=== PATIENT | female | born 1980 | race Caucasian/White ===

== ENCOUNTER → 2016-05-03 | Outpatient (CLI) | payer OTHER ==
[~2016-05-03] MED LIST: ADVAIR 250/501 EA INH; AMOXICILLIN500 M2 PO; ASPIRIN81 M1 PO; ATIVAN0.5 MG PO; B COMPLEX1 EACH PO; B-COMPLEX-501 CAP PO; BENADRYL25 MG PO; BIRTH CONTROL1 EAC1 PO; CLARITIN10 MG PO; COMBIVENT1 ARO IH; COREG25 MG PO; DELTASONE20 MG PO; EES400 MG PO; Hydralazine Hyd25 MG PO; IMDUR SA30 MG PO; K-TAB10 MEQ PO; KENALOG0.1% TP; LASIX80 MG PO; LISINOPRIL10 MG PO; MEDROL DOSEPAK4 MG PO; MOTRIN800 MG PO; MULTIPLE VITAMI1 CAP PO; PREDNISONE20 MG PO; ROBITUSSIN DM 105 ML PO; SINGULAIR10 MG PO; VENTOLIN H0.09 MG/AC INH; VENTOLIN0.09 MG/AC IH; VIBRAMYCIN100 MG PO; VITAMIN B610 MG PO; XARE20MG PO; ZITHROMAX Z PA250 MG PO; ZITHROMAX250 MG PO; ZYRTEC10 MG PO
[2016-05-03 14:55] LABS: BASO # 0.1 10*3/uL (0.0-0.1); BASO % 0.8 % (0.0-1.0); EOS # 0.2 10*3/uL (0.0-0.4); EOS % 1.8 % (1.0-4.0); HEMATOCRIT 33.1 % (37.0-47.0); HEMOGLOBIN 9.5 g/dl (12.0-16.0); IG # 0.1 10*3/uL (0.0-0.1); LYMPH # 3.7 10*3/uL (1.3-4.4); LYMPH % 33.5 % (27.0-41.0); MEAN CELL VOLUME 79.8 fl (81.0-99.0); MEAN CORPUSCULAR HGB 22.9 pg (27.0-31.0); MEAN CORPUSCULAR HGB CONC 28.7 g/dl (33.0-37.0); MEAN PLATELET VOLUME 8.1 fl (9.6-12.3); MONO # 0.9 10*3/uL (0.1-1.0); MONO % 7.8 % (3.0-9.0); NEUT # 6.1 10*3/uL (2.3-7.9); NEUT % 55.6 % (47.0-73.0); NUCLEATED RED BLOOD CELL 0.1 10*3/uL (0.0-0.0); NUCLEATED RED BLOOD CELL 0.5 % (0.0-0.0); PLATELET COUNT AUTOMATED 383 10*3/uL (130-400); RED BLOOD COUNT 4.15 10*6/uL (4.10-5.10); RED CELL DISTRI WIDTH 17.5 % (0-14.5)
[2016-05-03 15:14] LABS: ALBUMIN 3.1 gm/dl (3.1-4.5); ALKALINE PHOSPHATASE 108 U/L (45-117); BILIRUBIN, TOTAL 0.4 mg/dl (0.2-1.0); BUN 11 mg/dl (7-24); CARBON DIOXIDE 33 mmol/L (21-32); CHLORIDE 99 mmol/L (98-107); EST GLOM FILT AFRICAN AMERICAN > 60 ml/min; GLUCOSE 103 mg/dL (65-99); POTASSIUM 3.1 mmol/L (3.5-5.1); SGOT/AST 22 IU/L (3-35); SGPT/ALT 26 U/L (12-78); SODIUM 139 mmol/L (136-145); TOTAL PROTEIN 7.5 gm/dL (6.4-8.2)
== END | disposition home or self-care (01) ==
LOC: LAB 14:08
PROVIDERS: Internal Medicine Cardiovascular Disease
DX: I48.92 Unspecified atrial flutter (principal)

== ENCOUNTER 2016-09-29 12:18 | Emergency (ER) | payer OTHER ==
[~2016-09-29] VITALS: Ht 162.5 cm; Wt 127.0 kg
[2016-09-29] MEDS ORDERED: BACTRIM DS 8001 TA1 PO (13:01)
[2016-09-29 20:03] VITALS: BP 121/75
== END 2016-09-29 20:17 | disposition home or self-care (01) ==
LOC: ED 12:18
DX: L72.9 Follicular cyst of the skin and subcutaneous tissue, unspecified (principal); J45.909 Unspecified asthma, uncomplicated; Z90.49 Acquired absence of other specified parts of digestive tract; Z88.1 Allergy status to other antibiotic agents; Z88.8 Allergy status to other drugs, medicaments and biological substances; Z79.82 Long term (current) use of aspirin; Z79.899 Other long term (current) drug therapy

== ENCOUNTER 2016-12-15 17:02 | Emergency (ER) | payer OTHER ==
[~2016-12-15] VITALS: Wt 127.0 kg
[~2016-12-15 17:02] MED LIST changes: +BACTRIM DS 8001 TA1 PO
[2016-12-15 17:19] VITALS: BP 108/68
[2016-12-15] MEDS ORDERED: ZITHROMAX250 MG PO (17:25)
[2016-12-15] MEDS ORDERED: FLONASE ALLERG9.9 ML NAS (17:25)
[2016-12-15] MEDS ORDERED: AUGMENTIN 875875 MG PO (17:36)
[2016-12-15] MEDS ORDERED: PROVENTIL HFA6.7 GM INH (17:36)
== END 2016-12-15 17:53 | disposition home or self-care (01) ==
LOC: ED 17:02
DX: J40 Bronchitis, not specified as acute or chronic (principal); J01.00 Acute maxillary sinusitis, unspecified; J45.909 Unspecified asthma, uncomplicated; Z88.1 Allergy status to other antibiotic agents; Z88.8 Allergy status to other drugs, medicaments and biological substances; Z88.6 Allergy status to analgesic agent; Z79.899 Other long term (current) drug therapy; Z79.82 Long term (current) use of aspirin

== ENCOUNTER 2017-05-07 11:53 | Emergency (ER) | payer OTHER ==
[~2017-05-07] VITALS: Wt 125.2 kg
[~2017-05-07 11:53] MED LIST changes: +AUGMENTIN 875875 MG PO; +FLONASE ALLERG9.9 ML NAS; +PROVENTIL HFA6.7 GM INH
[2017-05-07 12:59] LABS: HEMATOCRIT 22.6 % (37.0-47.0); MEAN CELL VOLUME 70.8 fl (81.0-99.0); MEAN CORPUSCULAR HGB 18.8 pg (27.0-31.0); MEAN CORPUSCULAR HGB CONC 26.5 g/dl (33.0-37.0); MEAN PLATELET VOLUME 8.2 fl (9.6-12.3); NUCLEATED RED BLOOD CELL 0.3 10*3/uL (0.0-0.0); NUCLEATED RED BLOOD CELL 3.2 % (0.0-0.0); PLATELET COUNT AUTOMATED 385 10*3/uL (130-400); RED BLOOD COUNT 3.19 10*6/uL (4.10-5.10); RED CELL DISTRI WIDTH 19.5 % (0-14.5); WHITE BLOOD COUNT 8.4 10*3/uL (4.8-10.8)
[2017-05-07 13:14] LABS: ALBUMIN 3.1 gm/dl (3.1-4.5); ALKALINE PHOSPHATASE 99 U/L (45-117); BUN 9 mg/dl (7-24); CHLORIDE 99 mmol/L (98-107); CREATININE 0.96 mg/dL (0.55-1.02); POTASSIUM 3.7 mmol/L (3.5-5.1); SGOT/AST 24 IU/L (3-35); SGPT/ALT 19 U/L (12-78); SODIUM 138 mmol/L (136-145); TOTAL PROTEIN 7.5 gm/dL (6.4-8.2)
[2017-05-07 13:22] LABS: INTERNATIONAL NORM RATIO 1.2 (2.0-3.5)
[2017-05-07 13:35] LABS: TOTAL CELLS COUNTED 100 #CELLS
[2017-05-07 13:36] LABS: MICROCYTOSIS MODERATE; OVALOCYTES FEW; PLATELET SUFFICIENCY NORMAL (NORMAL); POLYCHROMASIA SLIGHT
[2017-05-07 14:21] LABS: HEMATOCRIT 22.9 % (37.0-47.0); MEAN CELL VOLUME 70.7 fl (81.0-99.0); MEAN CORPUSCULAR HGB 18.5 pg (27.0-31.0); MEAN CORPUSCULAR HGB CONC 26.2 g/dl (33.0-37.0); MEAN PLATELET VOLUME 7.9 fl (9.6-12.3); NUCLEATED RED BLOOD CELL 0.3 10*3/uL (0.0-0.0); NUCLEATED RED BLOOD CELL 3.3 % (0.0-0.0); PLATELET COUNT AUTOMATED 390 10*3/uL (130-400); RED BLOOD COUNT 3.24 10*6/uL (4.10-5.10); RED CELL DISTRI WIDTH 19.7 % (0-14.5); WHITE BLOOD COUNT 9.6 10*3/uL (4.8-10.8)
[2017-05-07 14:40] LABS: BASOPHILS 2 % (0-1); PLATELET SUFFICIENCY NORMAL (NORMAL); POLYCHROMASIA SLIGHT; TOTAL CELLS COUNTED 100 #CELLS
[2017-05-07 14:41] LABS: MICROCYTOSIS SLIGHT
[2017-05-07 15:16] LABS: BILIRUBIN 1+ (NEGATIVE); BLOOD 3+ (NEGATIVE); CLARITY CLOUDY (CLEAR); COLOR RED (YELLOW); GLUCOSE NEGATIVE (NEGATIVE); KETONE TRACE (NEGATIVE); LEUKO ESTERASE 3+ (NEGATIVE); NITRITE POSITIVE (NEGATIVE); PH 5.5 (5.0-9.0); UROBILINOGEN 0.2 E.U./dl (0.2-1.0)
[2017-05-07 15:23] LABS: BACTERIA 4+; RBC TNTC rbc/hpf (0-2)
[2017-05-07 18:30] VITALS: BP 109/66
[2017-05-07 18:48] LABS: HEMATOCRIT 24.8 % (37.0-47.0); MEAN CELL VOLUME 71.5 fl (81.0-99.0); MEAN CORPUSCULAR HGB 20.2 pg (27.0-31.0); MEAN CORPUSCULAR HGB CONC 28.2 g/dl (33.0-37.0); NUCLEATED RED BLOOD CELL 0.2 10*3/uL (0.0-0.0); NUCLEATED RED BLOOD CELL 2.5 % (0.0-0.0); PLATELET COUNT AUTOMATED 366 10*3/uL (130-400); RED BLOOD COUNT 3.47 10*6/uL (4.10-5.10); RED CELL DISTRI WIDTH 20.6 % (0-14.5); WHITE BLOOD COUNT 9.5 10*3/uL (4.8-10.8)
[2017-05-07 19:14] LABS: BASOPHILS 1 % (0-1); MICROCYTOSIS SLIGHT; POLYCHROMASIA SLIGHT; TOTAL CELLS COUNTED 100 #CELLS
[2017-05-07 19:15] LABS: PLATELET SUFFICIENCY NORMAL (NORMAL)
== END 2017-05-07 19:37 | disposition left against medical advice (07) ==
LOC: ED 11:53
PROVIDERS: Physician Assistant
DX: N93.8 Other specified abnormal uterine and vaginal bleeding (principal); D64.9 Anemia, unspecified; Z98.890 Other specified postprocedural states; Z90.49 Acquired absence of other specified parts of digestive tract; Z79.82 Long term (current) use of aspirin; Z79.899 Other long term (current) drug therapy; Z88.6 Allergy status to analgesic agent; Z88.5 Allergy status to narcotic agent; Z88.8 Allergy status to other drugs, medicaments and biological substances

== ENCOUNTER 2017-06-15 12:12 | Emergency (ER) | payer OTHER ==
[~2017-06-15] VITALS: Ht 162.5 cm; Wt 99.8 kg
[2017-06-15 12:31] VITALS: BP 109/68
[2017-06-15 13:21] LABS: BASO # 0.1 10*3/uL (0.0-0.1); BASO % 0.8 % (0.0-1.0); EOS # 0.1 10*3/uL (0.0-0.4); EOS % 0.8 % (1.0-4.0); HEMATOCRIT 32.4 % (37.0-47.0); HEMOGLOBIN 9.1 g/dl (12.0-16.0); LYMPH % 15.2 % (27.0-41.0); MEAN CELL VOLUME 74.5 fl (81.0-99.0); MEAN CORPUSCULAR HGB 20.9 pg (27.0-31.0); MEAN CORPUSCULAR HGB CONC 28.1 g/dl (33.0-37.0); MEAN PLATELET VOLUME 7.8 fl (9.6-12.3); MONO # 0.9 10*3/uL (0.1-1.0); MONO % 13.1 % (3.0-9.0); NEUT # 4.6 10*3/uL (2.3-7.9); NEUT % 69.5 % (47.0-73.0); PLATELET COUNT AUTOMATED 301 10*3/uL (130-400); RED BLOOD COUNT 4.35 10*6/uL (4.10-5.10); RED CELL DISTRI WIDTH 20.3 % (0-14.5); WHITE BLOOD COUNT 6.7 10*3/uL (4.8-10.8)
[2017-06-15 13:41] LABS: ALBUMIN 2.9 gm/dl (3.1-4.5); ALKALINE PHOSPHATASE 100 U/L (45-117); BUN 9 mg/dl (7-24); CHLORIDE 101 mmol/L (98-107); CREATININE 0.87 mg/dL (0.55-1.02); POTASSIUM 3.3 mmol/L (3.5-5.1); SGOT/AST 21 IU/L (3-35); SGPT/ALT 24 U/L (12-78); SODIUM 140 mmol/L (136-145); TOTAL PROTEIN 7.2 gm/dL (6.4-8.2)
[2017-06-15] MEDS ORDERED: TAMIFLU 75MG CA75 MG PO (14:35)
[2017-06-15] MEDS ORDERED: AVPAK AZITHROM250 M1 PO (14:35)
[2017-06-15] MEDS ORDERED: DUONEB 3 MG/3 ML3 M1 INH (14:35)
== END 2017-06-15 14:41 | disposition home or self-care (01) ==
LOC: ED 12:12
PROVIDERS: Registered Nurse
DX: J06.9 Acute upper respiratory infection, unspecified (principal); J10.1 Influenza due to other identified influenza virus with other respiratory manifestations; Z88.1 Allergy status to other antibiotic agents; Z88.6 Allergy status to analgesic agent; Z88.8 Allergy status to other drugs, medicaments and biological substances; Z79.82 Long term (current) use of aspirin; Z79.899 Other long term (current) drug therapy

== ENCOUNTER → 2017-06-19 | Outpatient (CLI) | payer OTHER ==
[~2017-06-19] MED LIST changes: +AVPAK AZITHROM250 M1 PO; +DUONEB 3 MG/3 ML3 M1 INH; +TAMIFLU 75MG CA75 MG PO
== END | disposition home or self-care (01) ==
LOC: RESCLI 02:20
DX: I50.22 Chronic systolic (congestive) heart failure (principal); J30.9 Allergic rhinitis, unspecified; E66.01 Morbid (severe) obesity due to excess calories; G43.119 Migraine with aura, intractable, without status migrainosus; J01.80 Other acute sinusitis; R09.81 Nasal congestion; J45.40 Moderate persistent asthma, uncomplicated; D50.9 Iron deficiency anemia, unspecified; E56.9 Vitamin deficiency, unspecified; J45.909 Unspecified asthma, uncomplicated; Z76.89 Persons encountering health services in other specified circumstances; Z68.35 Body mass index [BMI] 35.0-35.9, adult; Z90.49 Acquired absence of other specified parts of digestive tract

== ENCOUNTER → 2017-07-17 | Outpatient (CLI) | payer OTHER ==
[2017-07-17 11:11] LABS: CHOLESTEROL 157 mg/dL (<200); HDL CHOLESTEROL 40 mg/dl (40-60); LDL CHOLESTEROL 88 mg/dL (9-159); TRIGLYCERIDES 145 mg/dl (<150); VLDL CHOLESTEROL 29 mg/dL (6-40)
== END | disposition home or self-care (01) ==
LOC: RESCLI 02:49
PROVIDERS: Student in an Organized Health Care Education/Training Program
DX: I50.22 Chronic systolic (congestive) heart failure (principal); J45.40 Moderate persistent asthma, uncomplicated; G43.119 Migraine with aura, intractable, without status migrainosus; D50.9 Iron deficiency anemia, unspecified; J30.9 Allergic rhinitis, unspecified; E66.01 Morbid (severe) obesity due to excess calories; E56.9 Vitamin deficiency, unspecified; Z95.810 Presence of automatic (implantable) cardiac defibrillator; Z76.89 Persons encountering health services in other specified circumstances; Z68.35 Body mass index [BMI] 35.0-35.9, adult

== ENCOUNTER → 2017-08-23 | Outpatient (CLI) | payer OTHER ==
[2017-08-23 12:05] LABS: ALBUMIN 3.2 gm/dl (3.1-4.5); ALKALINE PHOSPHATASE 89 U/L (45-117); BILIRUBIN, DIRECT 0.1 mg/dL (0.0-0.2); BUN 11 mg/dl (7-24); CHLORIDE 105 mmol/L (98-107); CREATININE 0.84 mg/dL (0.55-1.02); POTASSIUM 3.4 mmol/L (3.5-5.1); SGOT/AST 21 IU/L (3-35); SGPT/ALT 31 U/L (12-78); SODIUM 139 mmol/L (136-145); TOTAL PROTEIN 7.4 gm/dL (6.4-8.2)
== END | disposition home or self-care (01) ==
LOC: LAB 10:20
PROVIDERS: Psychiatry & Neurology Neurology
DX: M62.830 Muscle spasm of back (principal); G43.119 Migraine with aura, intractable, without status migrainosus; M99.03 Segmental and somatic dysfunction of lumbar region

== ENCOUNTER 2017-10-15 14:23 | Emergency (ER) | payer OTHER ==
[~2017-10-15] VITALS: Ht 162.5 cm; Wt 125.2 kg
[2017-10-15 14:54] LABS: MEAN CELL VOLUME 70.3 fl (81.0-99.0); MEAN CORPUSCULAR HGB 17.7 pg (27.0-31.0); MEAN CORPUSCULAR HGB CONC 25.2 g/dl (33.0-37.0); MEAN PLATELET VOLUME 8.1 fl (9.6-12.3); NUCLEATED RED BLOOD CELL 0.3 10*3/uL (0.0-0.0); NUCLEATED RED BLOOD CELL 2.9 % (0.0-0.0); PLATELET COUNT AUTOMATED 336 10*3/uL (130-400); RED BLOOD COUNT 3.27 10*6/uL (4.10-5.10); RED CELL DISTRI WIDTH 22.2 % (0-14.5); WHITE BLOOD COUNT 11.6 10*3/uL (4.8-10.8)
[2017-10-15 15:03] LABS: ACT PARTIAL THROMBO TIME 27.1 SECONDS (20.8-31.5); HEMOGLOBIN 5.8 g/dl (12.0-16.0); INTERNATIONAL NORM RATIO 1.2 (2.0-3.5)
[2017-10-15 15:11] LABS: ALBUMIN 3.1 gm/dl (3.1-4.5); ALKALINE PHOSPHATASE 81 U/L (45-117); BUN 10 mg/dl (7-24); CHLORIDE 105 mmol/L (98-107); CREATININE 1.02 mg/dL (0.55-1.02); POTASSIUM 3.4 mmol/L (3.5-5.1); SGOT/AST 11 IU/L (3-35); SGPT/ALT 22 U/L (12-78); SODIUM 141 mmol/L (136-145); TOTAL PROTEIN 7.6 gm/dL (6.4-8.2)
[2017-10-15 15:20] LABS: BASOPHILS 1 % (0-1); TOTAL CELLS COUNTED 100 #CELLS
[2017-10-15 15:21] LABS: MICROCYTOSIS MARKED; PLATELET SUFFICIENCY NORMAL (NORMAL)
[2017-10-15 15:51] LABS: IRON 20 ug/dL (50-170); TOTAL IRON BINDING CAPACITY 441 ug/dl (250-450)
[2017-10-15 16:06] LABS: RETICULOCYTE % 6.33 % (0.50-2.50)
[2017-10-15 16:35] LABS: BILIRUBIN NEGATIVE (NEGATIVE); BLOOD 3+ (NEGATIVE); CLARITY CLOUDY (CLEAR); COLOR YELLOW (YELLOW); GLUCOSE NEGATIVE (NEGATIVE); KETONE NEGATIVE (NEGATIVE); LEUKO ESTERASE TRACE (NEGATIVE); NITRITE NEGATIVE (NEGATIVE); SPECIFIC GRAVITY <= 1.005 (1.005-1.030); UROBILINOGEN 0.2 E.U./dl (0.2-1.0)
[2017-10-15 16:43] LABS: BACTERIA TRACE; EPITHELIAL CELLS TNTC; RBC TNTC rbc/hpf (0-2)
[2017-10-15 21:40] VITALS: BP 120/72
== END 2017-10-15 21:54 | disposition left against medical advice (07) ==
LOC: ED 14:23
PROVIDERS: Emergency Medicine
DX: D64.9 Anemia, unspecified (principal); I48.91 Unspecified atrial fibrillation; I50.9 Heart failure, unspecified; J45.909 Unspecified asthma, uncomplicated; R73.9 Hyperglycemia, unspecified; Z88.8 Allergy status to other drugs, medicaments and biological substances; Z88.5 Allergy status to narcotic agent; Z79.82 Long term (current) use of aspirin; Z79.899 Other long term (current) drug therapy; Z90.49 Acquired absence of other specified parts of digestive tract

== ENCOUNTER → 2017-10-15 | Outpatient (CLI) | payer OTHER ==
[2017-10-15 14:01] LABS: HEMATOCRIT 22.9 % (37.0-47.0); MEAN CELL VOLUME 70.2 fl (81.0-99.0); MEAN CORPUSCULAR HGB 18.1 pg (27.0-31.0); MEAN CORPUSCULAR HGB CONC 25.8 g/dl (33.0-37.0); MEAN PLATELET VOLUME 8.4 fl (9.6-12.3); NUCLEATED RED BLOOD CELL 0.3 10*3/uL (0.0-0.0); NUCLEATED RED BLOOD CELL 2.6 % (0.0-0.0); PLATELET COUNT AUTOMATED 345 10*3/uL (130-400); RED BLOOD COUNT 3.26 10*6/uL (4.10-5.10); RED CELL DISTRI WIDTH 22.2 % (0-14.5); WHITE BLOOD COUNT 11.7 10*3/uL (4.8-10.8)
[2017-10-15 14:07] LABS: HEMOGLOBIN 5.9 g/dl (12.0-16.0)
[2017-10-15 14:21] LABS: BASOPHILS 3 % (0-1); TOTAL CELLS COUNTED 100 #CELLS
[2017-10-15 14:22] LABS: MICROCYTOSIS MARKED; PLATELET SUFFICIENCY NORMAL (NORMAL)
== END | disposition home or self-care (01) ==
LOC: RESCLI 04:33
PROVIDERS: Internal Medicine
DX: I50.22 Chronic systolic (congestive) heart failure (principal); N93.9 Abnormal uterine and vaginal bleeding, unspecified; J45.40 Moderate persistent asthma, uncomplicated; E66.01 Morbid (severe) obesity due to excess calories; G43.119 Migraine with aura, intractable, without status migrainosus; D50.9 Iron deficiency anemia, unspecified; E56.9 Vitamin deficiency, unspecified; Z95.810 Presence of automatic (implantable) cardiac defibrillator; Z90.49 Acquired absence of other specified parts of digestive tract; Z68.35 Body mass index [BMI] 35.0-35.9, adult

== ENCOUNTER → 2017-10-22 | Outpatient (CLI) | payer OTHER ==
[2017-10-22 14:09] LABS: BASO # 0.1 10*3/uL (0.0-0.1); BASO % 0.8 % (0.0-1.0); EOS # 0.2 10*3/uL (0.0-0.4); EOS % 1.8 % (1.0-4.0); HEMATOCRIT 30.3 % (37.0-47.0); HEMOGLOBIN 8.2 g/dl (12.0-16.0); LYMPH # 2.6 10*3/uL (1.3-4.4); LYMPH % 26.5 % (27.0-41.0); MEAN CELL VOLUME 74.4 fl (81.0-99.0); MEAN CORPUSCULAR HGB 20.1 pg (27.0-31.0); MEAN CORPUSCULAR HGB CONC 27.1 g/dl (33.0-37.0); MEAN PLATELET VOLUME 8.2 fl (9.6-12.3); MONO # 0.8 10*3/uL (0.1-1.0); MONO % 7.7 % (3.0-9.0); NEUT # 6.1 10*3/uL (2.3-7.9); NEUT % 62.7 % (47.0-73.0); NUCLEATED RED BLOOD CELL 0.1 10*3/uL (0.0-0.0); NUCLEATED RED BLOOD CELL 0.8 % (0.0-0.0); PLATELET COUNT AUTOMATED 319 10*3/uL (130-400); RED BLOOD COUNT 4.07 10*6/uL (4.10-5.10); RED CELL DISTRI WIDTH 23.9 % (0-14.5); WHITE BLOOD COUNT 9.8 10*3/uL (4.8-10.8)
== END | disposition home or self-care (01) ==
LOC: RESCLI 02:42
PROVIDERS: Student in an Organized Health Care Education/Training Program
DX: I50.22 Chronic systolic (congestive) heart failure (principal); K21.9 Gastro-esophageal reflux disease without esophagitis; E66.01 Morbid (severe) obesity due to excess calories; N93.9 Abnormal uterine and vaginal bleeding, unspecified; J45.40 Moderate persistent asthma, uncomplicated; G43.119 Migraine with aura, intractable, without status migrainosus; D50.9 Iron deficiency anemia, unspecified; E56.9 Vitamin deficiency, unspecified; Z68.35 Body mass index [BMI] 35.0-35.9, adult; Z95.810 Presence of automatic (implantable) cardiac defibrillator; Z88.8 Allergy status to other drugs, medicaments and biological substances

== ENCOUNTER → 2017-10-23 | Outpatient (CLI) | payer OTHER | END | disposition home or self-care (01) | LOC: RAD 14:18 | DX: M25.571 Pain in right ankle and joints of right foot (principal); M25.474 Effusion, right foot; W19.XXXA Unspecified fall, initial encounter; X58.XXXA Exposure to other specified factors, initial encounter; Y93.89 Activity, other specified; Y92.89 Other specified places as the place of occurrence of the external cause; Y99.8 Other external cause status ==

== ENCOUNTER → 2017-12-02 | Outpatient (CLI) | payer OTHER | END | disposition home or self-care (01) | LOC: US 12:23 | DX: N93.9 Abnormal uterine and vaginal bleeding, unspecified (principal) ==

== ENCOUNTER → 2017-12-05 | Outpatient (CLI) | payer OTHER | END | disposition home or self-care (01) | LOC: RESCLI 04:36 | DX: I50.22 Chronic systolic (congestive) heart failure (principal); K21.9 Gastro-esophageal reflux disease without esophagitis; J45.40 Moderate persistent asthma, uncomplicated; E66.01 Morbid (severe) obesity due to excess calories; G43.119 Migraine with aura, intractable, without status migrainosus; D50.9 Iron deficiency anemia, unspecified; E56.9 Vitamin deficiency, unspecified; G62.9 Polyneuropathy, unspecified; R00.0 Tachycardia, unspecified; Z95.810 Presence of automatic (implantable) cardiac defibrillator; Z90.49 Acquired absence of other specified parts of digestive tract ==

== ENCOUNTER 2017-12-16 15:16 | Inpatient (IN) | payer OTHER ==
[~2017-12-16] VITALS: Ht 162.5 cm; Wt 122.0 kg
[2017-12-16] VITALS (11 sets, daily range): BP systolic 94–136; BP diastolic 60–85
--- NOTE | ~2017-12-16 | CON ---
[place], [place] REPORT OF CONSULTATION NAME: GHADA ROSALES UNIT #: [id number] ROOM: 401 DOCTOR: CARRIE BACON DO BIRTHDATE: [birth year] DOS: 12/17/2017 REASON FOR CONSULTATION: Vaginal bleeding. HISTORY OF PRESENT ILLNESS: The patient is a 36-year-old female with a known history of congestive heart failure who is known to me from recent consultation in the office for abnormal uterine bleeding. The patient has had abnormal bleeding since last November. She states that when she does bleed, she bleeds heavily for 16 to 18 days every month. She has required blood transfusions in the past, with the most recent blood transfusions 2 months ago. The patient reports that she has been bleeding daily since August. She states that her bleeding was controlled previously on norethindrone; however, after her anticoagulant was changed to Eliquis, her bleeding became more significant. I started the patient back on norethindrone in October; however, the patient has been noncompliant and inconsistent with her medication regimen. Over the weekend, the patient reports that she went through over 50 pads and her bleeding became more significant with clots. Yesterday, she called the office and complained of dizziness. The patient was then sent to the Emergency Room for further evaluation. Upon arrival to the ER, the patient's bleeding had significantly decreased; however, her hemoglobin had dropped to 6.5. Workup in the office was significant for a 2 cm intramural fibroid on ultrasound. The patient's most recent hemoglobin was 9.7 on 11/26/2017. TSH and prolactin levels were normal. Endometrial biopsy in the office was inconclusive. PAST MEDICAL HISTORY: Chronic congestive heart failure, asthma, migraine headaches with aura, morbid obesity. PAST SURGICAL HISTORY: section x 1, cholecystectomy, defibrillator placement. GYNECOLOGICAL HISTORY: As per HPI. OBSTETRICAL HISTORY: 1, para 1. FAMILY HISTORY: Her father is at the age of 51 secondary to heart disease. Mother is alive at 57 years old. She has been diagnosed with hypertension, heart disease, chronic bronchitis. SOCIAL HISTORY: Denies tobacco, alcohol or illicit drug use. MEDICATIONS: Please see updated home medication list in the chart. The patient is currently on norethindrone 5 mg 5 tablets daily and ferrous sulfate 325 mg t.i.d. ALLERGIES: No known drug allergies. REVIEW OF SYSTEMS: GENERAL: Admits to fatigue. Denies fever, night sweats or weight loss. [place], [place] REPORT OF CONSULTATION NAME: GHADA ROSALES UNIT #: [id number] ROOM: [facility] DOCTOR: CARRIE BACON DO BIRTHDATE: [birth year] RESPIRATORY: Denies chest pain, cough, hemoptysis, and wheezing. The patient does have a history of asthma. BREASTS: Denies bloody nipple discharge, breast lump, breast pain, nipple discharge or red skin. CARDIOVASCULAR: The patient has a history of congestive heart failure. She denies chest pain, palpitations, and shortness of breath. GASTROINTESTINAL: Admits abdominal pain. Denies blood in stool, constipation, diarrhea, heartburn, nausea and vomiting. GENITOURINARY: Denies painful intercourse, vaginal discharge, vaginal itching, difficulty urinating, frequent urination, dysuria, hematuria and urgency. The patient admits heavy vaginal bleeding and cramping. NEUROLOGIC: Admits dizziness. Denies fainting, loss of strength, tingling, numbness and weakness. The patient has a history of migraine headaches. PHYSICAL EXAMINATION: VITAL SIGNS: Stable. EXAMINATION: Will examine in the OR. ASSESSMENT: 1. Abnormal uterine bleeding. 2. Fibroid uterus. 3. Chronic congestive heart failure, currently on anticoagulation with Eliquis. 4. Obesity. 5. Noncompliance on hormonal therapy. RECOMMENDATIONS: I discussed with Dr. Shetty that I believe the patient's bleeding is multifactorial. The patient does have an enlarged fibroid uterus; however, I believe her vaginal bleeding is exacerbated by obesity, noncompliance on medication, and her anticoagulant therapy. I recommend diagnostic hysteroscopy with dilation and curettage. I also recommend that she remain on her norethindrone 5 mg 5 tablets daily. I also discussed with Dr. Shetty that we consider switching her Eliquis back to Xarelto tomorrow. Plan to repeat CBC in the morning and monitor bleeding overnight. Also, of note, the patient is status post 2 units of packed red blood cells. Thank you very much for allowing me to participate in this patient's care. I will continue to follow her with you throughout her stay. Please do not hesitate to contact me with any further questions or concerns. [place], [place] REPORT OF CONSULTATION NAME: CONNIE,GHADA L UNIT #: [id number] ROOM: 401 DOCTOR: CARRIE BACON DO BIRTHDATE: [birth year] Carrie Bacon DO CM:CONSTR:REPORT OF CONSULTATION 1440 12/17/17 1700 interface
--- NOTE | ~2017-12-16 | O ---
[place], [place] OPERATIVE NOTE NAME: [id number] UNIT #: [id number] ROOM: 401 DOCTOR: CARRIE BACON DO BIRTHDATE: [birth year] DOS: 12/17/2017 SURGEON: Katja Bacon DO. PREOPERATIVE DIAGNOSIS: Abnormal uterine bleeding. POSTOPERATIVE DIAGNOSIS: Abnormal uterine bleeding. PROCEDURE PERFORMED: Diagnostic hysteroscopy with dilation and curettage. ANESTHESIA: General. ESTIMATED BLOOD LOSS: 50 mL. SPECIMENS: Endometrial curettings. COMPLICATIONS: None. GROSS PATHOLOGICAL FINDINGS: The patient is a 37-year-old female with normal age specific female secondary sexual characteristics and escutcheon. Bimanual exam revealed the uterus to be enlarged, approximately 12 weeks' size. The uterus was noted to be anteverted, anteflexed, and oriented along the anterior midline. Vaginal mucosa and cervix were of normal morphology. Diagnostic hysteroscopy revealed uniform endometrium. The right ostia was visualized; however, the left ostia was not. There was no evidence of fibroid or polyp formation. A large amount of clots was evacuated from the uterus. Endometrial curettings were moderate in amount and sent to the Department of Pathology for further evaluation. OPERATIVE PROCEDURE IN DETAIL: After informed consent was obtained, the patient was taken to the operating room where general anesthetic was administered. Upon adequate anesthesia, the patient was placed in the dorsal lithotomy position and sterilely prepped and draped in a manner appropriate for this procedure. A bimanual exam then ensued. The weighted speculum was placed. The anterior lip of the cervix was grasped with a single tooth tenaculum. Cervix was then serially dilated with Saúl metal dilators. The uterus sounded to 12 cm. The liquid media hysteroscope was then inserted into the uterine cavity and a thorough hysteroscopic examination then ensued with the above noted findings. The hysteroscope was removed. A medium Chappell curette was then obtained and inserted into the uterine cavity. A gentle, but thorough uterine curettage was performed. The endometrial curettings were moderate in amount and sent to the Department of Pathology for further evaluation. At this time, the procedure was complete. All instruments were removed from the vagina. Excellent hemostasis was noted. All sponge, needle and instrument counts were found to be correct x 2. The patient tolerated the procedure well and was sent to the recovery room in stable condition. [place], [place] OPERATIVE NOTE NAME: GHADA ROSALES UNIT #: [id number] ROOM: [facility] DOCTOR: CARRIE BACON DO BIRTHDATE: [birth year] Carrie Bacon DO CM:OPRECORD:OPERATIVE NOTE [id number] CARRIE BACON DO 12/25/17 0839 interface
[~2017-12-16 15:16] MED LIST changes: +PROAIR HFA8.5 GM INH; -VENTOLIN H0.09 MG/AC INH
[2017-12-16] MEDS ORDERED: ELIQUIS5 M1 PO (15:21)
[2017-12-16 16:49] LABS: HEMATOCRIT 22.6 % (37.0-47.0); HEMOGLOBIN 6.4 g/dl (12.0-16.0); MEAN CELL VOLUME 82.2 fl (81.0-99.0); MEAN CORPUSCULAR HGB 23.3 pg (27.0-31.0); MEAN CORPUSCULAR HGB CONC 28.3 g/dl (33.0-37.0); MEAN PLATELET VOLUME 8.6 fl (9.6-12.3); NUCLEATED RED BLOOD CELL 0.2 10*3/uL (0.0-0.0); PLATELET COUNT AUTOMATED 336 10*3/uL (130-400); RED BLOOD COUNT 2.75 10*6/uL (4.10-5.10); RED CELL DISTRI WIDTH 19.7 % (0-14.5); WHITE BLOOD COUNT 10.6 10*3/uL (4.8-10.8)
[2017-12-16 17:03] LABS: ALBUMIN 2.9 gm/dl (3.1-4.5); ALKALINE PHOSPHATASE 65 U/L (45-117); BUN 7 mg/dl (7-24); CHLORIDE 101 mmol/L (98-107); CREATININE 1.08 mg/dL (0.55-1.02); POTASSIUM 2.8 mmol/L (3.5-5.1); SGOT/AST 18 IU/L (3-35); SGPT/ALT 39 U/L (12-78); SODIUM 140 mmol/L (136-145); TOTAL PROTEIN 6.9 gm/dL (6.4-8.2)
[2017-12-16 17:05] LABS: BETA-HCG, QUANT < 1.0 mIU/mL (1-3)
[2017-12-16 17:09] LABS: ATYPICAL LYMPHS 1 % (0-0); TOTAL CELLS COUNTED 100 #CELLS
[2017-12-16 17:11] LABS: MICROCYTOSIS SLIGHT; PLATELET SUFFICIENCY NORMAL (NORMAL); POLYCHROMASIA SLIGHT
[2017-12-16] MEDS ORDERED: BREO ELLIPTA 11 EACH INH (22:19)
[2017-12-16] MEDS ORDERED: COREG25 MG PO (22:21)
[2017-12-16] MEDS ORDERED: LASIX80 MG PO (22:22)
[2017-12-16] MEDS ORDERED: K-TAB10 MEQ PO (22:23)
[2017-12-16] MEDS ORDERED: VITAMIN B-625 M1 PO (22:25)
[2017-12-16] MEDS ORDERED: TOPAMAX50 MG PO (22:25)
[2017-12-16] MEDS ORDERED: IRON256 MG PO (22:26)
[2017-12-16] MEDS ORDERED: VITAMIN D5000 UNIT PO (22:28)
[2017-12-16] MEDS ORDERED: NORETHIND-ETH1 EACH PO (22:28)
[2017-12-17] VITALS (17 sets, daily range): BP systolic 103–131; BP diastolic 46–74
[2017-12-17 06:19] LABS: HEMATOCRIT 26.6 % (37.0-47.0); HEMOGLOBIN 7.7 g/dl (12.0-16.0); MEAN CORPUSCULAR HGB 24.6 pg (27.0-31.0); MEAN CORPUSCULAR HGB CONC 28.9 g/dl (33.0-37.0); MEAN PLATELET VOLUME 9.1 fl (9.6-12.3); NUCLEATED RED BLOOD CELL 0.2 10*3/uL (0.0-0.0); NUCLEATED RED BLOOD CELL 1.7 % (0.0-0.0); PLATELET COUNT AUTOMATED 340 10*3/uL (130-400); RED BLOOD COUNT 3.13 10*6/uL (4.10-5.10); RED CELL DISTRI WIDTH 18.8 % (0-14.5); WHITE BLOOD COUNT 11.3 10*3/uL (4.8-10.8)
[2017-12-17 06:49] LABS: BUN 9 mg/dl (7-24); CHLORIDE 105 mmol/L (98-107); POTASSIUM 2.8 mmol/L (3.5-5.1); SODIUM 141 mmol/L (136-145)
[2017-12-17 07:01] LABS: CHOLESTEROL 132 mg/dL (<200); CREATININE 0.98 mg/dL (0.55-1.02); FREE T4 1.29 ng/dl (0.76-1.46); HDL CHOLESTEROL 23 mg/dl (40-60); LDL CHOLESTEROL 79 mg/dL (9-159); PHOSPHOROUS 3.7 mg/dL (2.5-4.9); TRIGLYCERIDES 152 mg/dl (<150); VLDL CHOLESTEROL 30 mg/dL (6-40)
[2017-12-17 07:02] LABS: BASOPHILS 1 % (0-1); TOTAL CELLS COUNTED 100 #CELLS
[2017-12-17 07:03] LABS: MICROCYTOSIS SLIGHT; PLATELET SUFFICIENCY NORMAL (NORMAL); POLYCHROMASIA SLIGHT
[2017-12-17 07:35] LABS: VITAMIN D, 25-HYDROXY 34.1 ng/mL (30-100)
[2017-12-18] VITALS: BP 118/63
[2017-12-18 06:50] LABS: BASO % 0.2 % (0.0-1.0); HEMATOCRIT 26.5 % (37.0-47.0); HEMOGLOBIN 7.6 g/dl (12.0-16.0); LYMPH # 1.9 10*3/uL (1.3-4.4); LYMPH % 15.6 % (27.0-41.0); MEAN CELL VOLUME 87.2 fl (81.0-99.0); MEAN CORPUSCULAR HGB CONC 28.7 g/dl (33.0-37.0); MEAN PLATELET VOLUME 8.8 fl (9.6-12.3); MONO # 0.9 10*3/uL (0.1-1.0); MONO % 7.1 % (3.0-9.0); NEUT # 9.4 10*3/uL (2.3-7.9); NEUT % 76.2 % (47.0-73.0); NUCLEATED RED BLOOD CELL 0.1 10*3/uL (0.0-0.0); NUCLEATED RED BLOOD CELL 0.8 % (0.0-0.0); PLATELET COUNT AUTOMATED 360 10*3/uL (130-400); RED BLOOD COUNT 3.04 10*6/uL (4.10-5.10); RED CELL DISTRI WIDTH 19.2 % (0-14.5); WHITE BLOOD COUNT 12.4 10*3/uL (4.8-10.8)
[2017-12-18 08:00] VITALS: BP 104/68
[2017-12-18] MEDS ORDERED: XARE20MG PO (09:17)
[2017-12-18] MEDS ORDERED: NORETHINDRONE AC5 MG PO (09:34)
[2017-12-18 09:35] LABS: ALBUMIN 2.7 gm/dl (3.1-4.5); BUN 12 mg/dl (7-24); CHLORIDE 105 mmol/L (98-107); CREATININE 0.86 mg/dL (0.55-1.02); POTASSIUM 3.4 mmol/L (3.5-5.1); SGOT/AST 56 IU/L (3-35); SODIUM 140 mmol/L (136-145)
[2017-12-18 09:39] LABS: ALKALINE PHOSPHATASE 70 U/L (45-117); SGPT/ALT 88 U/L (12-78); TOTAL PROTEIN 6.5 gm/dL (6.4-8.2)
== END 2017-12-18 11:45 | disposition home or self-care (01) | DRG 744 ==
LOC: ED 15:16 → EDHOLD 18:45 → 4E 18:45
PROVIDERS: Family Medicine; Nurse Practitioner Family; Obstetrics & Gynecology; Student in an Organized Health Care Education/Training Program
PROC: 30233N1 Transfusion of Nonautologous Red Blood Cells into Peripheral Vein, Percutaneous Approach (ICD-10-PCS; 2017-12-16)
PROC: 0UDB8ZX Extraction of Endometrium, Via Natural or Artificial Opening Endoscopic, Diagnostic (ICD-10-PCS; principal; 2017-12-17)
DX: N93.9 Abnormal uterine and vaginal bleeding, unspecified (principal); N17.0 Acute kidney failure with tubular necrosis; D68.59 Other primary thrombophilia; E44.0 Moderate protein-calorie malnutrition; I50.22 Chronic systolic (congestive) heart failure; I48.92 Unspecified atrial flutter; Z68.42 Body mass index [BMI] 45.0-49.9, adult; E66.01 Morbid (severe) obesity due to excess calories; J45.909 Unspecified asthma, uncomplicated; F45.8 Other somatoform disorders; D50.0 Iron deficiency anemia secondary to blood loss (chronic); E87.6 Hypokalemia; R00.0 Tachycardia, unspecified; G43.909 Migraine, unspecified, not intractable, without status migrainosus; D72.810 Lymphocytopenia; R73.9 Hyperglycemia, unspecified; Z95.810 Presence of automatic (implantable) cardiac defibrillator; Z98.891 History of uterine scar from previous surgery; Z88.8 Allergy status to other drugs, medicaments and biological substances; Z88.1 Allergy status to other antibiotic agents; Z90.49 Acquired absence of other specified parts of digestive tract; Z82.49 Family history of ischemic heart disease and other diseases of the circulatory system; Z80.9 Family history of malignant neoplasm, unspecified; Z86.711 Personal history of pulmonary embolism; Z80.41 Family history of malignant neoplasm of ovary; Z83.6 Family history of other diseases of the respiratory system; Z91.19 Patient's noncompliance with other medical treatment and regimen

== ENCOUNTER → 2018-02-28 | Outpatient (CLI) | payer OTHER ==
[~2018-02-28] MED LIST changes: +BREO ELLIPTA 11 EACH INH; +ELIQUIS5 M1 PO; +IRON256 MG PO; +NORETHIND-ETH1 EACH PO; +NORETHINDRONE AC5 MG PO; +TOPAMAX50 MG PO; +VITAMIN B-625 M1 PO; +VITAMIN D5000 UNIT PO
== END | disposition home or self-care (01) ==
LOC: RESCLI 08:20
DX: D50.0 Iron deficiency anemia secondary to blood loss (chronic) (principal); I50.22 Chronic systolic (congestive) heart failure; N92.0 Excessive and frequent menstruation with regular cycle; K21.9 Gastro-esophageal reflux disease without esophagitis; I48.92 Unspecified atrial flutter; G43.909 Migraine, unspecified, not intractable, without status migrainosus; J45.40 Moderate persistent asthma, uncomplicated; E55.9 Vitamin D deficiency, unspecified; F32.9 Major depressive disorder, single episode, unspecified

== ENCOUNTER → 2018-03-12 | Outpatient (CLI) | payer OTHER | END | disposition home or self-care (01) | LOC: CP 11:37 | DX: J45.40 Moderate persistent asthma, uncomplicated (principal); Z86.2 Personal history of diseases of the blood and blood-forming organs and certain disorders involving the immune mechanism; Z95.810 Presence of automatic (implantable) cardiac defibrillator ==

== ENCOUNTER → 2018-06-26 | Outpatient (CLI) | payer OTHER | END | disposition home or self-care (01) | LOC: RESCLI 09:37 | DX: N92.0 Excessive and frequent menstruation with regular cycle (principal); D50.0 Iron deficiency anemia secondary to blood loss (chronic); K21.9 Gastro-esophageal reflux disease without esophagitis; I50.22 Chronic systolic (congestive) heart failure; I48.92 Unspecified atrial flutter; G43.909 Migraine, unspecified, not intractable, without status migrainosus; J45.40 Moderate persistent asthma, uncomplicated; E55.9 Vitamin D deficiency, unspecified; F32.9 Major depressive disorder, single episode, unspecified; R00.0 Tachycardia, unspecified; E66.01 Morbid (severe) obesity due to excess calories; J01.00 Acute maxillary sinusitis, unspecified; Z95.810 Presence of automatic (implantable) cardiac defibrillator; Z79.899 Other long term (current) drug therapy; Z90.49 Acquired absence of other specified parts of digestive tract ==

== ENCOUNTER → 2018-07-23 | Outpatient (CLI) | payer OTHER | END | disposition home or self-care (01) | LOC: RESCLI 01:16 | DX: N92.0 Excessive and frequent menstruation with regular cycle (principal); D50.0 Iron deficiency anemia secondary to blood loss (chronic); I50.22 Chronic systolic (congestive) heart failure; I48.92 Unspecified atrial flutter; J45.40 Moderate persistent asthma, uncomplicated; E55.9 Vitamin D deficiency, unspecified; F32.9 Major depressive disorder, single episode, unspecified; R00.0 Tachycardia, unspecified; E66.01 Morbid (severe) obesity due to excess calories; J01.81 Other acute recurrent sinusitis; Z95.810 Presence of automatic (implantable) cardiac defibrillator ==

== ENCOUNTER → 2018-08-07 | Outpatient (CLI) | payer OTHER | END | disposition home or self-care (01) | LOC: RESCLI 02:53 | DX: Z01.89 Encounter for other specified special examinations (principal); J20.9 Acute bronchitis, unspecified; N92.0 Excessive and frequent menstruation with regular cycle; D50.0 Iron deficiency anemia secondary to blood loss (chronic); K21.9 Gastro-esophageal reflux disease without esophagitis; I50.22 Chronic systolic (congestive) heart failure; I48.92 Unspecified atrial flutter; G43.909 Migraine, unspecified, not intractable, without status migrainosus; J45.40 Moderate persistent asthma, uncomplicated; E55.9 Vitamin D deficiency, unspecified; F32.9 Major depressive disorder, single episode, unspecified; E66.01 Morbid (severe) obesity due to excess calories; J01.81 Other acute recurrent sinusitis; R68.89 Other general symptoms and signs; Z79.899 Other long term (current) drug therapy; Z86.2 Personal history of diseases of the blood and blood-forming organs and certain disorders involving the immune mechanism; Z95.810 Presence of automatic (implantable) cardiac defibrillator; Z90.49 Acquired absence of other specified parts of digestive tract; Z88.8 Allergy status to other drugs, medicaments and biological substances ==

== ENCOUNTER → 2018-08-11 | Outpatient (CLI) | payer OTHER ==
[2018-08-11 17:49] LABS: BASO % 0.2 % (0.0-1.0); EOS % 0.2 % (1.0-4.0); HEMATOCRIT 37.3 % (37.0-47.0); HEMOGLOBIN 10.4 g/dl (12.0-16.0); LYMPH # 1.9 10*3/uL (1.3-4.4); LYMPH % 28.4 % (27.0-41.0); MEAN CELL VOLUME 69.5 fl (81.0-99.0); MEAN CORPUSCULAR HGB 19.4 pg (27.0-31.0); MEAN CORPUSCULAR HGB CONC 27.9 g/dl (33.0-37.0); MEAN PLATELET VOLUME 8.3 fl (9.6-12.3); MONO # 0.3 10*3/uL (0.1-1.0); NEUT # 4.3 10*3/uL (2.3-7.9); NEUT % 65.4 % (47.0-73.0); NUCLEATED RED BLOOD CELL 0.5 % (0.0-0.0); PLATELET COUNT AUTOMATED 310 10*3/uL (130-400); RED BLOOD COUNT 5.37 10*6/uL (4.10-5.10); RED CELL DISTRI WIDTH 21.3 % (0-14.5); WHITE BLOOD COUNT 6.6 10*3/uL (4.8-10.8)
[2018-08-11 18:19] LABS: ALBUMIN 3.2 gm/dl (3.1-4.5); ALKALINE PHOSPHATASE 84 U/L (45-117); BUN 13 mg/dl (7-24); CHLORIDE 103 mmol/L (98-107); CREATININE 1.11 mg/dL (0.55-1.02); IRON 19 ug/dL (50-170); POTASSIUM 3.1 mmol/L (3.5-5.1); SGOT/AST 38 IU/L (3-35); SGPT/ALT 85 U/L (12-78); SODIUM 140 mmol/L (136-145); TOTAL IRON BINDING CAPACITY 462 ug/dl (250-450); TOTAL PROTEIN 7.7 gm/dL (6.4-8.2)
== END | disposition home or self-care (01) ==
LOC: LAB 17:16
PROVIDERS: Student in an Organized Health Care Education/Training Program
DX: Z01.89 Encounter for other specified special examinations (principal)

== ENCOUNTER → 2018-12-24 | Outpatient (CLI) | payer OTHER | END | disposition home or self-care (01) | LOC: RESCLI 01:03 | DX: J45.40 Moderate persistent asthma, uncomplicated (principal); K21.9 Gastro-esophageal reflux disease without esophagitis; D50.0 Iron deficiency anemia secondary to blood loss (chronic); I50.22 Chronic systolic (congestive) heart failure; I48.92 Unspecified atrial flutter; G43.909 Migraine, unspecified, not intractable, without status migrainosus; F32.9 Major depressive disorder, single episode, unspecified; E55.9 Vitamin D deficiency, unspecified; J30.2 Other seasonal allergic rhinitis; Z79.899 Other long term (current) drug therapy ==

== ENCOUNTER 2019-02-22 17:08 | Emergency (ER) | payer OTHER ==
[~2019-02-22] VITALS: Ht 162.5 cm; Wt 111.1 kg
[2019-02-22 17:08] VITALS: BP 118/70
[2019-02-22] MEDS ORDERED: TESSALON PERLE100 M1 PO (18:26)
[2019-02-22] MEDS ORDERED: PROVENTIL HFA6.7 GM INH (18:26)
[2019-02-22] MEDS ORDERED: PREDNISONE20 M1 PO (18:26)
== END 2019-02-22 18:38 | disposition home or self-care (01) ==
LOC: ED 17:08
DX: J45.909 Unspecified asthma, uncomplicated (principal); G43.909 Migraine, unspecified, not intractable, without status migrainosus; Z79.899 Other long term (current) drug therapy; Z88.1 Allergy status to other antibiotic agents; Z88.6 Allergy status to analgesic agent; Z88.8 Allergy status to other drugs, medicaments and biological substances

== ENCOUNTER → 2019-03-06 | Outpatient (CLI) | payer OTHER ==
[~2019-03-06] MED LIST changes: +PREDNISONE20 M1 PO; +TESSALON PERLE100 M1 PO
== END | disposition home or self-care (01) ==
LOC: RESCLI 00:42
DX: Z13.31 Encounter for screening for depression (principal); G43.909 Migraine, unspecified, not intractable, without status migrainosus; J45.40 Moderate persistent asthma, uncomplicated; K21.9 Gastro-esophageal reflux disease without esophagitis; D50.0 Iron deficiency anemia secondary to blood loss (chronic); I50.22 Chronic systolic (congestive) heart failure; I48.92 Unspecified atrial flutter; F32.9 Major depressive disorder, single episode, unspecified; E55.9 Vitamin D deficiency, unspecified; J30.2 Other seasonal allergic rhinitis; Z28.21 Immunization not carried out because of patient refusal; Z79.899 Other long term (current) drug therapy

== ENCOUNTER 2019-04-26 17:20 | Emergency (ER) | payer OTHER ==
[~2019-04-26] VITALS: Ht 162.5 cm; Wt 113.4 kg
[2019-04-26 17:22] VITALS: BP 150/98
[2019-04-26 17:57] LABS: BASO # 0.1 10*3/uL (0.0-0.1); BASO % 0.7 % (0.0-1.0); EOS # 0.2 10*3/uL (0.0-0.4); EOS % 2.5 % (1.0-4.0); HEMATOCRIT 46.4 % (37.0-47.0); HEMOGLOBIN 14.2 g/dl (12.0-16.0); LYMPH % 31.8 % (27.0-41.0); MEAN CELL VOLUME 79.3 fl (81.0-99.0); MEAN CORPUSCULAR HGB 24.3 pg (27.0-31.0); MEAN CORPUSCULAR HGB CONC 30.6 g/dl (33.0-37.0); MEAN PLATELET VOLUME 8.9 fl (9.6-12.3); MONO # 0.8 10*3/uL (0.1-1.0); MONO % 8.8 % (3.0-9.0); NEUT # 5.3 10*3/uL (2.3-7.9); NEUT % 55.9 % (47.0-73.0); PLATELET COUNT AUTOMATED 319 10*3/uL (130-400); RED BLOOD COUNT 5.85 10*6/uL (4.10-5.10); RED CELL DISTRI WIDTH 18.1 % (0-14.5); WHITE BLOOD COUNT 9.5 10*3/uL (4.8-10.8)
[2019-04-26 18:03] LABS: BILIRUBIN NEGATIVE (NEGATIVE); BLOOD 2+ (NEGATIVE); CLARITY SL CLOUDY (CLEAR); COLOR YELLOW (YELLOW); GLUCOSE NEGATIVE (NEGATIVE); KETONE NEGATIVE (NEGATIVE); LEUKO ESTERASE TRACE (NEGATIVE); NITRITE NEGATIVE (NEGATIVE); SPECIFIC GRAVITY 1.025 (1.005-1.030)
[2019-04-26 18:20] LABS: BACTERIA TRACE; EPITHELIAL CELLS 0-2
[2019-04-26 18:36] LABS: ALBUMIN 3.4 gm/dl (3.1-4.5); ALKALINE PHOSPHATASE 102 U/L (45-117); BUN 10 mg/dl (7-24); CHLORIDE 109 mmol/L (98-107); LIPASE 207 U/L (73-393); POTASSIUM 3.1 mmol/L (3.5-5.1); SGOT/AST 39 IU/L (3-35); SGPT/ALT 77 U/L (12-78); SODIUM 141 mmol/L (136-145); TOTAL PROTEIN 8.3 gm/dL (6.4-8.2)
[2019-04-26] MEDS ORDERED: DICYCLOMINE HCL20 MG PO (20:45)
[2019-04-26] MEDS ORDERED: IMODIUM A-D2 M2 PO (20:45)
[2019-04-26] MEDS ORDERED: PROBIOTIC1 EAC4 PO (20:45)
== END 2019-04-26 21:40 | disposition home or self-care (01) ==
LOC: ED 17:20
PROVIDERS: Nurse Practitioner Family
DX: I88.0 Nonspecific mesenteric lymphadenitis (principal); K52.9 Noninfective gastroenteritis and colitis, unspecified; I50.22 Chronic systolic (congestive) heart failure; J45.909 Unspecified asthma, uncomplicated; G43.909 Migraine, unspecified, not intractable, without status migrainosus; E66.01 Morbid (severe) obesity due to excess calories; Z88.1 Allergy status to other antibiotic agents; Z88.8 Allergy status to other drugs, medicaments and biological substances; Z88.6 Allergy status to analgesic agent; Z79.899 Other long term (current) drug therapy; Z68.42 Body mass index [BMI] 45.0-49.9, adult

== ENCOUNTER → 2019-05-22 | Outpatient (CLI) | payer OTHER ==
[~2019-05-22] MED LIST changes: +DICYCLOMINE HCL20 MG PO; +IMODIUM A-D2 M2 PO; +OMEPRAZOLE20 M2 PO; +PROBIOTIC1 EAC4 PO
== END | disposition home or self-care (01) ==
LOC: RESCLI 00:43
DX: G43.909 Migraine, unspecified, not intractable, without status migrainosus (principal); E66.01 Morbid (severe) obesity due to excess calories; I50.22 Chronic systolic (congestive) heart failure; J45.40 Moderate persistent asthma, uncomplicated; D50.9 Iron deficiency anemia, unspecified; K21.9 Gastro-esophageal reflux disease without esophagitis; N93.9 Abnormal uterine and vaginal bleeding, unspecified; D50.0 Iron deficiency anemia secondary to blood loss (chronic); G62.9 Polyneuropathy, unspecified; N92.0 Excessive and frequent menstruation with regular cycle; I48.92 Unspecified atrial flutter; E55.9 Vitamin D deficiency, unspecified; J30.2 Other seasonal allergic rhinitis; K52.9 Noninfective gastroenteritis and colitis, unspecified; Z01.818 Encounter for other preprocedural examination; Z95.810 Presence of automatic (implantable) cardiac defibrillator; Z79.899 Other long term (current) drug therapy; Z90.49 Acquired absence of other specified parts of digestive tract; Z88.8 Allergy status to other drugs, medicaments and biological substances

== ENCOUNTER → 2019-06-16 | Outpatient (CLI) | payer OTHER | END | disposition home or self-care (01) | LOC: RESCLI 02:03 | DX: J01.00 Acute maxillary sinusitis, unspecified (principal); I48.92 Unspecified atrial flutter; I50.22 Chronic systolic (congestive) heart failure; F32.9 Major depressive disorder, single episode, unspecified; G43.909 Migraine, unspecified, not intractable, without status migrainosus; K21.9 Gastro-esophageal reflux disease without esophagitis; D50.0 Iron deficiency anemia secondary to blood loss (chronic); E55.9 Vitamin D deficiency, unspecified; G62.9 Polyneuropathy, unspecified; J45.909 Unspecified asthma, uncomplicated; E66.01 Morbid (severe) obesity due to excess calories; Z79.899 Other long term (current) drug therapy; Z88.8 Allergy status to other drugs, medicaments and biological substances ==

== ENCOUNTER → 2019-06-19 | Outpatient (CLI) | payer OTHER ==
[2019-06-19 11:46] LABS: BASO # 0.1 10*3/uL (0.0-0.1); BASO % 0.9 % (0.0-1.0); EOS # 0.2 10*3/uL (0.0-0.4); EOS % 2.5 % (1.0-4.0); HEMOGLOBIN 13.8 g/dl (12.0-16.0); LYMPH # 2.9 10*3/uL (1.3-4.4); LYMPH % 33.5 % (27.0-41.0); MEAN CELL VOLUME 81.7 fl (81.0-99.0); MEAN CORPUSCULAR HGB CONC 30.7 g/dl (33.0-37.0); MEAN PLATELET VOLUME 8.8 fl (9.6-12.3); MONO # 0.6 10*3/uL (0.1-1.0); MONO % 7.4 % (3.0-9.0); NEUT # 4.7 10*3/uL (2.3-7.9); NEUT % 55.2 % (47.0-73.0); PLATELET COUNT AUTOMATED 281 10*3/uL (130-400); RED BLOOD COUNT 5.51 10*6/uL (4.10-5.10); RED CELL DISTRI WIDTH 15.6 % (0-14.5); WHITE BLOOD COUNT 8.5 10*3/uL (4.8-10.8)
[2019-06-19 12:10] LABS: ALBUMIN 3.1 gm/dl (3.1-4.5); ALKALINE PHOSPHATASE 86 U/L (45-117); BUN 12 mg/dl (7-24); CHLORIDE 113 mmol/L (98-107); CHOLESTEROL 143 mg/dL (<200); CREATININE 1.04 mg/dL (0.55-1.02); HDL CHOLESTEROL 22 mg/dl (40-60); LDL CHOLESTEROL 96 mg/dL (9-159); POTASSIUM 4.1 mmol/L (3.5-5.1); SGOT/AST 23 IU/L (3-35); SGPT/ALT 33 U/L (12-78); SODIUM 145 mmol/L (136-145); TOTAL PROTEIN 7.5 gm/dL (6.4-8.2); TRIGLYCERIDES 126 mg/dl (<150); VLDL CHOLESTEROL 25 mg/dL (6-40)
== END | disposition home or self-care (01) ==
LOC: LAB 11:20
PROVIDERS: Internal Medicine
DX: I50.22 Chronic systolic (congestive) heart failure (principal)

== ENCOUNTER → 2019-06-19 | Day surgery (SDC) | payer OTHER ==
[~2019-06-19] VITALS: Ht 162.5 cm; Wt 111.1 kg
[2019-06-19 12:33] VITALS: BP 128/81
[2019-06-19 13:00] VITALS: BP 113/66
[2019-06-19 13:15] VITALS: BP 116/46
[2019-06-19 13:30] VITALS: BP 124/53
== END | disposition home or self-care (01) ==
LOC: SDC 06-16 09:30
DX: K21.0 Gastro-esophageal reflux disease with esophagitis (principal); K29.50 Unspecified chronic gastritis without bleeding; G43.909 Migraine, unspecified, not intractable, without status migrainosus; J45.909 Unspecified asthma, uncomplicated; F32.9 Major depressive disorder, single episode, unspecified; I10 Essential (primary) hypertension; Z88.8 Allergy status to other drugs, medicaments and biological substances; Z98.890 Other specified postprocedural states; Z95.5 Presence of coronary angioplasty implant and graft; Z82.49 Family history of ischemic heart disease and other diseases of the circulatory system

== ENCOUNTER → 2019-10-09 | Outpatient (CLI) | payer OTHER ==
[~2019-10-09] MED LIST changes: +AYGESTIN5 MG PO; +BENADRYL ALLERG25 M5 PO; +DRIZALMA SPRINK60 MG PO; +Fioricet 325 MG1 TAB PO; +K-TAB20 MEQ PO; +MAGNESIUM250 M2 PO; +ONDANSETRON4 MG SL; +SEROQUEL25 MG PO; +VENT7GM INH; +VITAL-D RX TAB1 EACH PO; +VITAMIN B-650 M1 PO; +VITAMIN D350 MC2 PO; -VITAMIN D5000 UNIT PO
[2019-10-09 13:47] LABS: BASO # 0.1 10*3/uL (0.0-0.1); BASO % 0.8 % (0.0-1.0); EOS # 0.2 10*3/uL (0.0-0.4); EOS % 2.2 % (1.0-4.0); HEMATOCRIT 34.8 % (37.0-47.0); LYMPH # 3.6 10*3/uL (1.3-4.4); LYMPH % 33.7 % (27.0-41.0); MEAN CELL VOLUME 84.3 fl (81.0-99.0); MEAN CORPUSCULAR HGB 25.7 pg (27.0-31.0); MEAN CORPUSCULAR HGB CONC 30.5 g/dl (33.0-37.0); MEAN PLATELET VOLUME 8.9 fl (9.6-12.3); MONO # 0.7 10*3/uL (0.1-1.0); MONO % 6.5 % (3.0-9.0); NEUT # 5.9 10*3/uL (2.3-7.9); NEUT % 55.9 % (47.0-73.0); PLATELET COUNT AUTOMATED 253 10*3/uL (130-400); RED BLOOD COUNT 4.13 10*6/uL (4.10-5.10); RED CELL DISTRI WIDTH 15.5 % (0-14.5); WHITE BLOOD COUNT 10.6 10*3/uL (4.8-10.8)
[2019-10-09 14:20] LABS: FREE T4 1.01 ng/dl (0.76-1.46); THYROID STIM HORMONE (HS) 1.63 uIU/ml (0.358-4.75)
== END | disposition home or self-care (01) ==
LOC: US 12:30 → LAB 12:32
PROVIDERS: Obstetrics & Gynecology
DX: N39.3 Stress incontinence (female) (male) (principal)

== ENCOUNTER 2019-10-16 19:05 | Inpatient (IN) | payer OTHER ==
[~2019-10-16] VITALS: Ht 162.6 cm; Wt 124.3 kg
[~2019-10-16 19:05] MED LIST changes: -AYGESTIN5 MG PO; -BENADRYL ALLERG25 M5 PO; -DRIZALMA SPRINK60 MG PO; -Fioricet 325 MG1 TAB PO; -K-TAB20 MEQ PO; -MAGNESIUM250 M2 PO; -ONDANSETRON4 MG SL; -SEROQUEL25 MG PO; -VENT7GM INH; -VITAL-D RX TAB1 EACH PO; -VITAMIN B-650 M1 PO
[2019-10-16 19:49] VITALS: BP 128/70
[2019-10-16 20:27] LABS: HEMATOCRIT 21.6 % (37.0-47.0); MEAN CELL VOLUME 92.3 fl (81.0-99.0); MEAN CORPUSCULAR HGB 26.1 pg (27.0-31.0); MEAN CORPUSCULAR HGB CONC 28.2 g/dl (33.0-37.0); MEAN PLATELET VOLUME 8.7 fl (9.6-12.3); NUCLEATED RED BLOOD CELL 0.4 10*3/uL (0.0-0.0); NUCLEATED RED BLOOD CELL 3.4 % (0.0-0.0); PLATELET COUNT AUTOMATED 295 10*3/uL (130-400); RED BLOOD COUNT 2.34 10*6/uL (4.10-5.10); RED CELL DISTRI WIDTH 21.2 % (0-14.5); WHITE BLOOD COUNT 11.9 10*3/uL (4.8-10.8)
[2019-10-16 20:41] LABS: ALBUMIN 2.6 gm/dl (3.1-4.5); ALKALINE PHOSPHATASE 78 U/L (45-117); BUN 11 mg/dl (7-24); CHLORIDE 111 mmol/L (98-107); CREATININE 1.15 mg/dL (0.55-1.02); POTASSIUM 2.9 mmol/L (3.5-5.1); SGOT/AST 22 IU/L (3-35); SGPT/ALT 42 U/L (12-78); SODIUM 142 mmol/L (136-145); TOTAL PROTEIN 6.1 gm/dL (6.4-8.2)
[2019-10-16 20:56] LABS: TOTAL CELLS COUNTED 100 #CELLS
[2019-10-16 20:57] LABS: MICROCYTOSIS MODERATE; POLYCHROMASIA MODERATE
[2019-10-16 20:58] LABS: PLATELET SUFFICIENCY NORMAL (NORMAL)
[2019-10-16 21:18] VITALS: BP 115/77
[2019-10-16 21:45] VITALS: BP 118/73
[2019-10-16] MEDS ORDERED: IMDUR SA30 MG PO (22:27)
[2019-10-16] MEDS ORDERED: VENT7GM INH (22:29)
[2019-10-16] MEDS ORDERED: BENADRYL ALLERG25 M5 PO (22:30)
[2019-10-16] MEDS ORDERED: VITAMIN B-650 M1 PO (22:31)
[2019-10-16] MEDS ORDERED: VITAL-D RX TAB1 EACH PO (22:31)
[2019-10-16] MEDS ORDERED: AYGESTIN5 MG PO (22:34)
[2019-10-16] MEDS ORDERED: TOPAMAX50 MG PO (22:36)
[2019-10-16] MEDS ORDERED: DRIZALMA SPRINK60 MG PO (22:41)
[2019-10-16] MEDS ORDERED: Fioricet 325 MG1 TAB PO (22:41)
[2019-10-16] MEDS ORDERED: MAGNESIUM250 M2 PO (22:42)
[2019-10-16] MEDS ORDERED: ONDANSETRON4 MG SL (22:43)
[2019-10-16] MEDS ORDERED: SEROQUEL25 MG PO (22:45)
[2019-10-16 22:56] VITALS: BP 115/61
[2019-10-16 23:30] VITALS: BP 118/64
[2019-10-16 23:32] VITALS: BP 118/64
[2019-10-17] VITALS (11 sets, daily range): BP systolic 100–127; BP diastolic 27–67
[2019-10-17] MEDS ORDERED: XARE20MG PO (01:28)
[2019-10-17 06:39] LABS: MEAN CELL VOLUME 92.4 fl (81.0-99.0); MEAN CORPUSCULAR HGB 26.5 pg (27.0-31.0); MEAN CORPUSCULAR HGB CONC 28.6 g/dl (33.0-37.0); MEAN PLATELET VOLUME 8.8 fl (9.6-12.3); NUCLEATED RED BLOOD CELL 0.3 10*3/uL (0.0-0.0); NUCLEATED RED BLOOD CELL 2.7 % (0.0-0.0); PLATELET COUNT AUTOMATED 262 10*3/uL (130-400); RED BLOOD COUNT 2.38 10*6/uL (4.10-5.10); RED CELL DISTRI WIDTH 20.7 % (0-14.5)
[2019-10-17 07:01] LABS: BUN 9 mg/dl (7-24); CHLORIDE 116 mmol/L (98-107); CREATININE 0.81 mg/dL (0.55-1.02); IRON 15 ug/dL (50-170); SODIUM 144 mmol/L (136-145); TOTAL IRON BINDING CAPACITY 338 ug/dl (250-450)
[2019-10-17 07:03] LABS: BASOPHILS 1 % (0-1); PLATELET SUFFICIENCY NORMAL (NORMAL); POLYCHROMASIA SLIGHT; TOTAL CELLS COUNTED 100 #CELLS
[2019-10-17 07:54] LABS: FERRITIN 9.3 ng/mL (10.0-291.0); VITAMIN D, 25-HYDROXY 41.3 ng/mL (30-100)
[2019-10-17 12:01] LABS: HEMATOCRIT 25.4 % (37.0-47.0); MEAN CELL VOLUME 92.4 fl (81.0-99.0); MEAN CORPUSCULAR HGB 27.6 pg (27.0-31.0); MEAN CORPUSCULAR HGB CONC 29.9 g/dl (33.0-37.0); MEAN PLATELET VOLUME 8.6 fl (9.6-12.3); NUCLEATED RED BLOOD CELL 0.4 10*3/uL (0.0-0.0); NUCLEATED RED BLOOD CELL 2.9 % (0.0-0.0); PLATELET COUNT AUTOMATED 262 10*3/uL (130-400); RED BLOOD COUNT 2.75 10*6/uL (4.10-5.10); RED CELL DISTRI WIDTH 20.4 % (0-14.5); WHITE BLOOD COUNT 11.9 10*3/uL (4.8-10.8)
[2019-10-17 12:18] LABS: PLATELET SUFFICIENCY NORMAL (NORMAL); POLYCHROMASIA SLIGHT; TOTAL CELLS COUNTED 100 #CELLS
[2019-10-17] MEDS ORDERED: K-TAB20 MEQ PO (14:08)
== END 2019-10-17 14:53 | disposition home or self-care (01) | DRG 532 ==
LOC: ED 19:05 → EDHOLD 21:11 → 5E 21:31
PROVIDERS: Internal Medicine; Physician Assistant; ADMIT Emergency Medicine
PROC: 30233N1 Transfusion of Nonautologous Red Blood Cells into Peripheral Vein, Percutaneous Approach (ICD-10-PCS; principal; 2019-10-16)
DX: N93.9 Abnormal uterine and vaginal bleeding, unspecified (principal); D50.0 Iron deficiency anemia secondary to blood loss (chronic); E87.6 Hypokalemia; D72.823 Leukemoid reaction; E43 Unspecified severe protein-calorie malnutrition; R65.10 Systemic inflammatory response syndrome (SIRS) of non-infectious origin without acute organ dysfunction; J45.909 Unspecified asthma, uncomplicated; R73.9 Hyperglycemia, unspecified; I50.22 Chronic systolic (congestive) heart failure; I48.92 Unspecified atrial flutter; G43.909 Migraine, unspecified, not intractable, without status migrainosus; E66.01 Morbid (severe) obesity due to excess calories; I42.9 Cardiomyopathy, unspecified; I11.0 Hypertensive heart disease with heart failure; F32.9 Major depressive disorder, single episode, unspecified; Z68.42 Body mass index [BMI] 45.0-49.9, adult; Z88.8 Allergy status to other drugs, medicaments and biological substances; Z88.6 Allergy status to analgesic agent; Z88.1 Allergy status to other antibiotic agents; Z90.49 Acquired absence of other specified parts of digestive tract; Z95.810 Presence of automatic (implantable) cardiac defibrillator; Z98.891 History of uterine scar from previous surgery; Z82.5 Family history of asthma and other chronic lower respiratory diseases; Z80.41 Family history of malignant neoplasm of ovary; Z82.49 Family history of ischemic heart disease and other diseases of the circulatory system; Z86.711 Personal history of pulmonary embolism; Z79.899 Other long term (current) drug therapy; Z79.01 Long term (current) use of anticoagulants

== ENCOUNTER → 2019-11-24 | Outpatient (CLI) | payer OTHER ==
[~2019-11-24] MED LIST changes: +AYGESTIN5 MG PO; +BENADRYL ALLERG25 M5 PO; +DRIZALMA SPRINK60 MG PO; +Fioricet 325 MG1 TAB PO; +K-TAB20 MEQ PO; +MAGNESIUM250 M2 PO; +ONDANSETRON4 MG SL; +SEROQUEL25 MG PO; +VENT7GM INH; +VITAL-D RX TAB1 EACH PO; +VITAMIN B-650 M1 PO
== END | disposition home or self-care (01) ==
LOC: RESCLI 05:45
DX: Z01.818 Encounter for other preprocedural examination (principal); I48.92 Unspecified atrial flutter; I50.22 Chronic systolic (congestive) heart failure; F32.9 Major depressive disorder, single episode, unspecified; G43.909 Migraine, unspecified, not intractable, without status migrainosus; D50.0 Iron deficiency anemia secondary to blood loss (chronic); E55.9 Vitamin D deficiency, unspecified; J45.909 Unspecified asthma, uncomplicated; G62.9 Polyneuropathy, unspecified; K21.9 Gastro-esophageal reflux disease without esophagitis; L60.0 Ingrowing nail; E66.01 Morbid (severe) obesity due to excess calories; Z79.899 Other long term (current) drug therapy; Z90.49 Acquired absence of other specified parts of digestive tract; Z98.890 Other specified postprocedural states; Z88.8 Allergy status to other drugs, medicaments and biological substances

== ENCOUNTER → 2019-12-31 | Outpatient (CLI) | payer OTHER ==
[~2019-12-31] MED LIST changes: +WIXELA 100-501 EACH INH
[2019-12-31 14:58] LABS: BASO # 0.1 10*3/uL (0.0-0.1); BASO % 0.9 % (0.0-1.0); EOS # 0.2 10*3/uL (0.0-0.4); EOS % 3.4 % (1.0-4.0); HEMATOCRIT 46.3 % (37.0-47.0); LYMPH # 2.6 10*3/uL (1.3-4.4); LYMPH % 37.3 % (27.0-41.0); MEAN CELL VOLUME 86.2 fl (81.0-99.0); MEAN CORPUSCULAR HGB 26.4 pg (27.0-31.0); MEAN CORPUSCULAR HGB CONC 30.7 g/dl (33.0-37.0); MONO # 0.6 10*3/uL (0.1-1.0); MONO % 7.9 % (3.0-9.0); NEUT # 3.5 10*3/uL (2.3-7.9); NEUT % 50.2 % (47.0-73.0); PLATELET COUNT AUTOMATED 219 10*3/uL (130-400); RED BLOOD COUNT 5.37 10*6/uL (4.10-5.10); RED CELL DISTRI WIDTH 13.4 % (0-14.5); WHITE BLOOD COUNT 7.1 10*3/uL (4.8-10.8)
[2019-12-31 15:10] LABS: BUN 11 mg/dl (7-24); CHLORIDE 114 mmol/L (98-107); CREATININE 1.02 mg/dL (0.55-1.02); POTASSIUM 4.1 mmol/L (3.5-5.1); SODIUM 144 mmol/L (136-145)
== END | disposition home or self-care (01) ==
LOC: LAB 01:57 → COVID19 01:57
PROVIDERS: ATTEND Obstetrics & Gynecology
DX: Z01.812 Encounter for preprocedural laboratory examination (principal); Z20.828 Contact with and (suspected) exposure to other viral communicable diseases

== ENCOUNTER → 2020-01-08 | Outpatient (CLI) | payer OTHER ==
[~2020-01-08] MED LIST changes: +PERCOCET 5-3251 EACH PO
== END | disposition home or self-care (01) ==
LOC: RESCLI 14:02
PROVIDERS: ATTEND Internal Medicine
DX: J45.909 Unspecified asthma, uncomplicated (principal); I48.92 Unspecified atrial flutter; G62.9 Polyneuropathy, unspecified; E55.9 Vitamin D deficiency, unspecified; K21.9 Gastro-esophageal reflux disease without esophagitis; G43.909 Migraine, unspecified, not intractable, without status migrainosus; D50.0 Iron deficiency anemia secondary to blood loss (chronic); I50.22 Chronic systolic (congestive) heart failure; F32.9 Major depressive disorder, single episode, unspecified; J01.80 Other acute sinusitis; Z79.899 Other long term (current) drug therapy; Z90.49 Acquired absence of other specified parts of digestive tract; Z95.810 Presence of automatic (implantable) cardiac defibrillator; Z98.890 Other specified postprocedural states; Z88.8 Allergy status to other drugs, medicaments and biological substances

== ENCOUNTER → 2020-02-02 | Outpatient (CLI) | payer OTHER | END | disposition home or self-care (01) | LOC: RESCLI 00:34 | PROVIDERS: ATTEND Internal Medicine | DX: G43.909 Migraine, unspecified, not intractable, without status migrainosus (principal); J45.909 Unspecified asthma, uncomplicated; I48.92 Unspecified atrial flutter; G62.9 Polyneuropathy, unspecified; E55.9 Vitamin D deficiency, unspecified; K21.9 Gastro-esophageal reflux disease without esophagitis; D50.0 Iron deficiency anemia secondary to blood loss (chronic); I50.22 Chronic systolic (congestive) heart failure; F32.9 Major depressive disorder, single episode, unspecified; J01.80 Other acute sinusitis; Z79.899 Other long term (current) drug therapy; Z98.890 Other specified postprocedural states; Z90.49 Acquired absence of other specified parts of digestive tract; Z88.8 Allergy status to other drugs, medicaments and biological substances ==

== ENCOUNTER → 2020-02-04 | Outpatient (CLI) | payer OTHER ==
[2020-02-04 16:47] LABS: BASO # 0.1 10*3/uL (0.0-0.1); BASO % 1.1 % (0.0-1.0); EOS # 0.3 10*3/uL (0.0-0.4); EOS % 3.4 % (1.0-4.0); HEMATOCRIT 43.7 % (37.0-47.0); LYMPH # 3.2 10*3/uL (1.3-4.4); LYMPH % 39.4 % (27.0-41.0); MEAN CELL VOLUME 83.7 fl (81.0-99.0); MEAN CORPUSCULAR HGB 26.8 pg (27.0-31.0); MEAN PLATELET VOLUME 8.7 fl (9.6-12.3); MONO # 0.7 10*3/uL (0.1-1.0); MONO % 8.6 % (3.0-9.0); NEUT # 3.8 10*3/uL (2.3-7.9); PLATELET COUNT AUTOMATED 193 10*3/uL (130-400); RED BLOOD COUNT 5.22 10*6/uL (4.10-5.10)
== END | disposition home or self-care (01) ==
LOC: LAB 16:22
PROVIDERS: ATTEND Obstetrics & Gynecology
DX: Z09 Encounter for follow-up examination after completed treatment for conditions other than malignant neoplasm (principal); N93.9 Abnormal uterine and vaginal bleeding, unspecified

== ENCOUNTER → 2020-04-12 | Outpatient (CLI) | payer OTHER ==
[2020-04-12 13:38] LABS: BASO # 0.1 10*3/uL (0.0-0.1); BASO % 0.7 % (0.0-1.0); EOS # 0.2 10*3/uL (0.0-0.4); EOS % 2.3 % (1.0-4.0); HEMATOCRIT 42.8 % (37.0-47.0); LYMPH # 3.1 10*3/uL (1.3-4.4); LYMPH % 37.3 % (27.0-41.0); MEAN CELL VOLUME 89.2 fl (81.0-99.0); MEAN CORPUSCULAR HGB 28.1 pg (27.0-31.0); MEAN CORPUSCULAR HGB CONC 31.5 g/dl (33.0-37.0); MEAN PLATELET VOLUME 8.6 fl (9.6-12.3); MONO # 0.6 10*3/uL (0.1-1.0); MONO % 6.9 % (3.0-9.0); NEUT # 4.3 10*3/uL (2.3-7.9); NEUT % 52.2 % (47.0-73.0); PLATELET COUNT AUTOMATED 226 10*3/uL (130-400); WHITE BLOOD COUNT 8.2 10*3/uL (4.8-10.8)
== END | disposition home or self-care (01) ==
LOC: LAB 13:26
PROVIDERS: ATTEND Obstetrics & Gynecology
DX: N93.9 Abnormal uterine and vaginal bleeding, unspecified (principal)

== ENCOUNTER → 2020-05-17 | Outpatient (CLI) | payer OTHER | END | disposition home or self-care (01) | LOC: RESCLI 03:06 | PROVIDERS: ATTEND Internal Medicine | DX: G43.909 Migraine, unspecified, not intractable, without status migrainosus (principal); E55.9 Vitamin D deficiency, unspecified; I48.92 Unspecified atrial flutter; K21.9 Gastro-esophageal reflux disease without esophagitis; D50.0 Iron deficiency anemia secondary to blood loss (chronic); J45.909 Unspecified asthma, uncomplicated; I50.22 Chronic systolic (congestive) heart failure; F32.9 Major depressive disorder, single episode, unspecified; G62.9 Polyneuropathy, unspecified; Z79.899 Other long term (current) drug therapy; Z88.8 Allergy status to other drugs, medicaments and biological substances ==

== ENCOUNTER → 2020-07-04 | Outpatient (CLI) | payer OTHER | END | disposition home or self-care (01) | LOC: MAMMO 06-28 16:00 | PROVIDERS: ATTEND Obstetrics & Gynecology | DX: Z12.31 Encounter for screening mammogram for malignant neoplasm of breast (principal); N64.89 Other specified disorders of breast; Z01.419 Encounter for gynecological examination (general) (routine) without abnormal findings ==

== ENCOUNTER → 2020-07-12 | Outpatient (CLI) | payer OTHER | END | disposition home or self-care (01) | LOC: MAMMO 13:33 | PROVIDERS: ATTEND Internal Medicine | DX: R92.8 Other abnormal and inconclusive findings on diagnostic imaging of breast (principal) ==

== ENCOUNTER → 2020-07-29 | Outpatient (CLI) | payer OTHER | END | disposition home or self-care (01) | LOC: RESCLI 00:49 | PROVIDERS: ATTEND Psychiatry & Neurology Neurology | DX: I48.92 Unspecified atrial flutter (principal); K21.9 Gastro-esophageal reflux disease without esophagitis; D50.0 Iron deficiency anemia secondary to blood loss (chronic); J45.909 Unspecified asthma, uncomplicated; G62.9 Polyneuropathy, unspecified; G43.909 Migraine, unspecified, not intractable, without status migrainosus; E55.9 Vitamin D deficiency, unspecified; I50.22 Chronic systolic (congestive) heart failure; F32.9 Major depressive disorder, single episode, unspecified; E66.01 Morbid (severe) obesity due to excess calories; Z23 Encounter for immunization; Z13.220 Encounter for screening for lipoid disorders; Z91.89 Other specified personal risk factors, not elsewhere classified; Z79.899 Other long term (current) drug therapy; Z90.49 Acquired absence of other specified parts of digestive tract; Z95.0 Presence of cardiac pacemaker; Z90.710 Acquired absence of both cervix and uterus; Z98.51 Tubal ligation status; Z98.890 Other specified postprocedural states; Z88.8 Allergy status to other drugs, medicaments and biological substances ==

== ENCOUNTER → 2020-08-08 | Outpatient (CLI) | payer OTHER ==
[2020-08-08 11:22] LABS: BASO # 0.1 10*3/uL (0.0-0.1); BASO % 0.9 % (0.0-1.0); EOS # 0.3 10*3/uL (0.0-0.4); EOS % 3.2 % (1.0-4.0); HEMATOCRIT 42.8 % (37.0-47.0); LYMPH % 32.6 % (27.0-41.0); MEAN CELL VOLUME 87.7 fl (81.0-99.0); MEAN CORPUSCULAR HGB 27.3 pg (27.0-31.0); MEAN CORPUSCULAR HGB CONC 31.1 g/dl (33.0-37.0); MEAN PLATELET VOLUME 8.5 fl (9.6-12.3); MONO # 0.7 10*3/uL (0.1-1.0); MONO % 7.1 % (3.0-9.0); NEUT # 5.1 10*3/uL (2.3-7.9); NEUT % 55.7 % (47.0-73.0); PLATELET COUNT AUTOMATED 214 10*3/uL (130-400); RED BLOOD COUNT 4.88 10*6/uL (4.10-5.10); RED CELL DISTRI WIDTH 14.2 % (0-14.5); WHITE BLOOD COUNT 9.2 10*3/uL (4.8-10.8)
[2020-08-08 11:58] LABS: ALBUMIN 3.2 gm/dl (3.1-4.5); ALKALINE PHOSPHATASE 125 U/L (45-117); BUN 13 mg/dl (7-24); CHLORIDE 109 mmol/L (98-107); CHOLESTEROL 167 mg/dL (<200); HDL CHOLESTEROL 33 mg/dl (40-60); LDL CHOLESTEROL 91 mg/dL (9-159); POTASSIUM 3.4 mmol/L (3.5-5.1); SGOT/AST 22 IU/L (3-35); SGPT/ALT 33 U/L (12-78); SODIUM 141 mmol/L (136-145); TOTAL PROTEIN 7.5 gm/dL (6.4-8.2); TRIGLYCERIDES 215 mg/dl (<150); VLDL CHOLESTEROL 43 mg/dL (6-40)
== END | disposition home or self-care (01) ==
LOC: LAB 10:30
PROVIDERS: Internal Medicine; ATTEND Internal Medicine Nephrology
DX: Z13.220 Encounter for screening for lipoid disorders (principal); I50.22 Chronic systolic (congestive) heart failure; D50.0 Iron deficiency anemia secondary to blood loss (chronic)

== ENCOUNTER → 2020-12-01 | Outpatient (CLI) | payer OTHER | END | disposition home or self-care (01) | LOC: RESCLI 01:14 | PROVIDERS: ATTEND Internal Medicine | DX: I48.92 Unspecified atrial flutter (principal); I50.22 Chronic systolic (congestive) heart failure; E55.9 Vitamin D deficiency, unspecified; K21.9 Gastro-esophageal reflux disease without esophagitis; J45.40 Moderate persistent asthma, uncomplicated; J45.909 Unspecified asthma, uncomplicated; G62.9 Polyneuropathy, unspecified; D50.0 Iron deficiency anemia secondary to blood loss (chronic); G43.909 Migraine, unspecified, not intractable, without status migrainosus; F32.9 Major depressive disorder, single episode, unspecified; Z79.899 Other long term (current) drug therapy; Z90.49 Acquired absence of other specified parts of digestive tract; Z90.722 Acquired absence of ovaries, bilateral; Z98.890 Other specified postprocedural states ==

== ENCOUNTER 2020-12-07 12:34 | Emergency (ER) | payer OTHER ==
[2020-12-07 12:54] VITALS: BP 126/89
[2020-12-07] MEDS ORDERED: PREDNISONE20 M1 PO (14:53)
== END 2020-12-07 15:41 | disposition home or self-care (01) ==
LOC: ED 12:34
DX: L50.9 Urticaria, unspecified (principal); Z88.1 Allergy status to other antibiotic agents; Z88.6 Allergy status to analgesic agent; Z88.8 Allergy status to other drugs, medicaments and biological substances; Z79.899 Other long term (current) drug therapy

== ENCOUNTER → 2020-12-29 | Outpatient (CLI) | payer OTHER | END | disposition home or self-care (01) | LOC: RESCLI 00:14 | PROVIDERS: ATTEND Internal Medicine | DX: M25.561 Pain in right knee (principal); M25.461 Effusion, right knee; I48.92 Unspecified atrial flutter; I50.22 Chronic systolic (congestive) heart failure; E55.9 Vitamin D deficiency, unspecified; K21.9 Gastro-esophageal reflux disease without esophagitis; J45.40 Moderate persistent asthma, uncomplicated; J45.909 Unspecified asthma, uncomplicated; G62.9 Polyneuropathy, unspecified; D50.0 Iron deficiency anemia secondary to blood loss (chronic); G43.909 Migraine, unspecified, not intractable, without status migrainosus; F32.9 Major depressive disorder, single episode, unspecified; Z88.8 Allergy status to other drugs, medicaments and biological substances; Z79.899 Other long term (current) drug therapy ==

== ENCOUNTER → 2021-03-09 | Outpatient (CLI) | payer OTHER | END | disposition home or self-care (01) | LOC: RESCLI 02:55 | PROVIDERS: ATTEND Internal Medicine | DX: E55.9 Vitamin D deficiency, unspecified (principal); D50.0 Iron deficiency anemia secondary to blood loss (chronic); G43.909 Migraine, unspecified, not intractable, without status migrainosus; F32.9 Major depressive disorder, single episode, unspecified; I48.92 Unspecified atrial flutter; I50.32 Chronic diastolic (congestive) heart failure; I50.22 Chronic systolic (congestive) heart failure; J45.909 Unspecified asthma, uncomplicated; G62.9 Polyneuropathy, unspecified; K21.9 Gastro-esophageal reflux disease without esophagitis; Z79.899 Other long term (current) drug therapy ==

== ENCOUNTER → 2021-12-25 | Outpatient (CLI) | payer OTHER | LOC: MAMMO 10:30 | PROVIDERS: ATTEND Obstetrics & Gynecology | DX: Z12.31 Encounter for screening mammogram for malignant neoplasm of breast (principal) ==

== ENCOUNTER → 2022-02-12 | Outpatient (CLI) | payer OTHER | END | disposition home or self-care (01) | LOC: LAB 10:36 | PROVIDERS: ATTEND Family Medicine | DX: R20.2 Paresthesia of skin (principal) ==

== ENCOUNTER 2022-09-28 13:08 | Emergency (ER) | payer OTHER ==
[~2022-09-28] VITALS: Ht 162.5 cm; Wt 130.2 kg
[2022-09-28 13:21] VITALS: BP 139/82
[2022-09-28 16:23] LABS: BASO # 0.1 10*3/uL (0.0-0.1); BASO % 0.8 % (0.0-1.0); EOS # 0.2 10*3/uL (0.0-0.4); EOS % 2.4 % (1.0-4.0); HEMATOCRIT 39.8 % (37.0-47.0); LYMPH # 2.9 10*3/uL (1.3-4.4); LYMPH % 32.4 % (27.0-41.0); MEAN CELL VOLUME 83.4 fl (81.0-99.0); MEAN CORPUSCULAR HGB 25.6 pg (27.0-31.0); MEAN CORPUSCULAR HGB CONC 30.7 g/dl (33.0-37.0); MEAN PLATELET VOLUME 8.7 fl (9.6-12.3); MONO # 0.8 10*3/uL (0.1-1.0); MONO % 8.4 % (3.0-9.0); NEUT # 4.9 10*3/uL (2.3-7.9); NEUT % 55.3 % (47.0-73.0); PLATELET COUNT AUTOMATED 216 10*3/uL (130-400); RED BLOOD COUNT 4.77 10*6/uL (4.10-5.10); RED CELL DISTRI WIDTH 15.6 % (0-14.5); WHITE BLOOD COUNT 8.9 10*3/uL (4.8-10.8)
[2022-09-28 16:52] LABS: ALKALINE PHOSPHATASE 103 U/L (46-116); BUN 9 mg/dl (9-23); CHLORIDE 108 mmol/L (98-107); LIPASE 56 U/L (12-53); POTASSIUM 3.1 mmol/L (3.4-5.1); SGPT/ALT 16 U/L (10-49)
[2022-09-28 16:53] LABS: BETA-HCG, QUANT < 3.0 mIU/mL (3-10)
== END 2022-09-28 17:18 | disposition home or self-care (01) ==
LOC: ED 13:08
PROVIDERS: Emergency Medicine
DX: R19.7 Diarrhea, unspecified (principal); E87.6 Hypokalemia; G43.909 Migraine, unspecified, not intractable, without status migrainosus; I10 Essential (primary) hypertension; F32.A Depression, unspecified; Z95.5 Presence of coronary angioplasty implant and graft; Z88.6 Allergy status to analgesic agent; Z88.8 Allergy status to other drugs, medicaments and biological substances; Z88.1 Allergy status to other antibiotic agents; Z88.5 Allergy status to narcotic agent; Z90.49 Acquired absence of other specified parts of digestive tract; Z98.890 Other specified postprocedural states

== ENCOUNTER 2022-12-12 11:00 | Emergency (ER) | payer OTHER ==
[~2022-12-12] VITALS: Ht 162.5 cm; Wt 81.6 kg
[2022-12-12 11:17] VITALS: BP 148/93
[2022-12-12 11:48] LABS: BILIRUBIN 1+ (Negative); BLOOD Negative (Negative); CLARITY Turbid (Clear); COLOR Dark Yellow (Yellow); GLUCOSE Negative (Negative); KETONE Trace (Negative); LEUKO ESTERASE 2+ (Negative); NITRITE Negative (Negative); PH 5.5 (4.5-8.0); SPECIFIC GRAVITY 1.025 (1.001-1.030)
[2022-12-12 11:58] LABS: CALCIUM OXALATE CRYSTALS 1+; MUCOUS 1+; RBC 0-2 rbc/hpf (0-2)
[2022-12-12 12:00] LABS: BACTERIA 3+
[2022-12-12 12:03] LABS: HEMATOCRIT 28.9 % (37.0-47.0); MEAN CELL VOLUME 83.8 fl (81.0-99.0); MEAN CORPUSCULAR HGB 23.8 pg (27.0-31.0); MEAN CORPUSCULAR HGB CONC 28.4 g/dl (33.0-37.0); NUCLEATED RED BLOOD CELL 0.1 10*3/uL (0.0-0.0); NUCLEATED RED BLOOD CELL 1.5 % (0.0-0.0); PLATELET COUNT AUTOMATED 267 10*3/uL (130-400); RED BLOOD COUNT 3.45 10*6/uL (4.10-5.10); RED CELL DISTRI WIDTH 17.1 % (0-14.5); WHITE BLOOD COUNT 6.6 10*3/uL (4.8-10.8)
[2022-12-12 12:07] LABS: MANUAL DIFF REFLEX YES
[2022-12-12 12:29] LABS: ATYPICAL LYMPHS 1 % (0-0); PLATELET SUFFICIENCY NORMAL (NORMAL); TOTAL CELLS COUNTED 100 #CELLS
[2022-12-12 12:30] LABS: OVALOCYTES FEW; POLYCHROMASIA SLIGHT
[2022-12-12 12:31] LABS: ALKALINE PHOSPHATASE 145 U/L (46-116); BUN 10 mg/dl (9-23); CHLORIDE 107 mmol/L (98-107); POTASSIUM 3.3 mmol/L (3.4-5.1); SGPT/ALT 36 U/L (10-49); TOTAL PROTEIN 7.4 gm/dL (6.0-8.0)
[2022-12-12] MEDS ORDERED: MACROBID100 M1 PO (16:21)
== END 2022-12-12 15:26 | disposition home or self-care (01) ==
LOC: ED 11:00
PROVIDERS: Nurse Practitioner Family
DX: N93.8 Other specified abnormal uterine and vaginal bleeding (principal); D64.9 Anemia, unspecified; D25.9 Leiomyoma of uterus, unspecified; N39.0 Urinary tract infection, site not specified; I10 Essential (primary) hypertension; J45.909 Unspecified asthma, uncomplicated; K21.9 Gastro-esophageal reflux disease without esophagitis; G43.909 Migraine, unspecified, not intractable, without status migrainosus; F32.A Depression, unspecified; Z88.8 Allergy status to other drugs, medicaments and biological substances; Z88.6 Allergy status to analgesic agent; Z88.5 Allergy status to narcotic agent; Z90.49 Acquired absence of other specified parts of digestive tract; Z98.890 Other specified postprocedural states

== ENCOUNTER → 2023-05-20 | Outpatient (CLI) | payer OTHER ==
[~2023-05-20] MED LIST changes: +MACROBID100 M1 PO
== END | disposition home or self-care (01) ==
LOC: CARD 00:13
PROVIDERS: ATTEND Internal Medicine Cardiovascular Disease
DX: Z01.818 Encounter for other preprocedural examination (principal); I34.0 Nonrheumatic mitral (valve) insufficiency; I50.43 Acute on chronic combined systolic (congestive) and diastolic (congestive) heart failure; I48.92 Unspecified atrial flutter; I51.7 Cardiomegaly

== ENCOUNTER → 2024-02-20 | Outpatient (CLI) | payer OTHER | END | disposition home or self-care (01) | LOC: MAMMO 00:05 | PROVIDERS: ATTEND Obstetrics & Gynecology | DX: Z12.31 Encounter for screening mammogram for malignant neoplasm of breast (principal) ==

== ENCOUNTER → 2025-02-24 | Outpatient (CLI) | payer OTHER | END | disposition home or self-care (01) | LOC: RAD 03:26 | PROVIDERS: ATTEND Internal Medicine Nephrology | DX: M54.50 Low back pain, unspecified (principal); R20.0 Anesthesia of skin ==

== ENCOUNTER → 2025-03-24 | Outpatient (CLI) | payer OTHER | END | disposition home or self-care (01) | LOC: MAMMO 00:40 | PROVIDERS: ATTEND Obstetrics & Gynecology | DX: Z12.31 Encounter for screening mammogram for malignant neoplasm of breast (principal); M46.92 Unspecified inflammatory spondylopathy, cervical region; M25.78 Osteophyte, vertebrae ==